=== PATIENT | female | born 1955 | race Caucasian/White ===

== ENCOUNTER 2016-08-06 10:00 | Outpatient (RCR) ==
[2014-01-12 11:36] VITALS: BMI 34.4
--- NOTE | 2016-08-04 12:42 | RS.OPPTEV2 ---
Date of Note: 08/04/16 Visit #: 1 Date of Evaluation: 08/04/16 Date of Onset/Injury/Change in Status: 07/31/15 Surgery Performed?: No Treatment Diagnosis: Unsteady gait History of Condition/Mechanism of Injury:: Patient reports she had a nervious breakdown in April and was in a coma for about 6 days. Her reports she had constant seizures while in the coma. She is now very weak in her legs and arms. She is in a support group at [facility] 3X/wk and is now mainly having difficulty with her walking. She had stage IV colon Ca in the past 3 yrs and had many complications from the chemo that followed the Ca. She also has hx of neck and back surgeries. Prior Level of Function.....Patient was independent with: ADL's, Self Care, Work /Vocation, Caregiving, Ambulation/Mobility, Community Integration/Access Functional Limitations: Sleep, Self Care, ADL's, Reaching, Pushing, Pulling, Lifting, Carrying, Sitting, Standing, Bending, Squatting, Ambulation, Community Access/Integration Current Subjective/complaints:: I want to be able to walk again w/o the walker. Treatment Side (optional): Bilateral Medical History Medical History: Hypertension, Arthritis, Cancer Surgical History: Cervical Spine, Lumbar Spine, Tonsillectomy, Hysterectomy, Other Surgical History Comments:: T12 - L1 fx with surgery due to fall. Knee surgeries bilaterally. Colon resection due to Ca. Smoking Status: Never smoker Pain Assessment - Pain Description Pain Location: Bilateral legs from her mid thighs distally to her feet. Pain Description: Aching Current Pain Intensity: 9/10 Worst Pain Intensity: 10/10 Functional Outcome Measure Tinetti: 16 - G Codes & Severity Modifier G Codes & Modifier: NA Source of G Code score: NA Gait - Gait Pattern Gait Comments: Patient has delayed step advancement greatest on the RLE, decreased kinesthetic awareness is noted and decreased balance with use of FWW. She is unable to maintain standing balance w/o support. She has been on FWW since DC from the hospital in May 2016. General Range of Motion: Right knee extension -45 degrees; left knee extension -35 degrees Muscle Strength: Bilateral hip flexors 3/5, right knee ext 3+/5, left knee ext 4 /5 and bilateral hamstring 4/5, bilateral 4/5 to 4+/5. Pateint has rapid muscle faitgue with all activity. Palpation Palpation Findings: Tenderness (Bilateral thighs with multiple tender points present left > right.) Sensation - Sensation Right Lower Extremity: Impaired Left Lower Extremity: Impaired Sensation Description: Numbness (Lower legs and feet) Balance - Sitting Balance Static Sitting Balance: Normal Dynamic Sitting Balance: Normal - Standing Balance Static Standing Balance: Fair Dynamic Standing Balance: Poor (Without assistive device) Interventions - Exercise/Activities/Manual Therapy Exercises/Activities: NA Manual Therapy: NA - Charges Total Direct Minutes: 60 Total Treatment Time: 60 Procedures billed for this date of service:: PT Duy (High) Assessment Assessment: Neuromuscular defictis with muslce weakness and rapid fatigue. She has decreased standing balance and gait deficits as well as difficulty performing sit to/from transfers. Patient Education: Education of Plan of Care Rehab Potential: Good Short Term Goals Goal #1: Patient is independent with hamstring stretches. Goal to be met by: 09/25/16 Goal #2: BLE strength 4 to 4+/5 throughout. Goal to be met by: 08/28/16 Goal #3: Dynamic standing balance 4/5 without FWW. Goal to be met by: 08/28/16 Goal #4: Patient ambulates 300' with SC and good balance. Goal to be met by: 08/28/16 Applications Intern Goals Goal #1: Bilateral hamstring length WFLs. Goal to be met by: 09/18/16 Goal #2: Pateint is able to ambulate w/o use of AD safely. Goal to be met by: 09/18/16 Goal #3: BLE strength 5/5 to improve stability and balance. Goal to be met by: 09/18/16 Goal #4: Tinetti score 24/28 Goal to be met by: 09/18/16 Plan - Treatment to be Provided Procedures: Therapeutic Exercises, Therapeutic Activity, Gait Training, Neuromuscular Rehab, Manual Therapy, Massage, Patient Education Modalities: Electrical Stimulation, Ultrasound/Phonophoresis, Cryotherapy, Hot Packs - Treatment Plan Frequency: 3 X week Duration: 6 weeks ORDER # VISITS AND/OR THROUGH DATE: 09/18/2016 - Treatment Code (1) Ataxia Comments: R27.0 (2) Muscle weakness Comments: M62.81
--- NOTE | 2016-08-06 11:28 | RS.OPPTDN ---
Subjective Date of Note: 08/06/16 Visit #: 2 Date of Evaluation: 08/04/16 Treatment Diagnosis: Unsteady gait Current Subjective/complaints:: Patient reports her main goal is to walk again without an assistive device. Pain Assessment - Pain Description Pain Location: Bilateral legs from her mid thighs distally to her feet. Pain Description: Burning, Aching Pain Description: brning/tingling in her feet Current Pain Intensity: 7/10 Interventions - Exercise/Activities/Manual Therapy Exercises/Activities: 45 mins. total of supine AROM to both LE's,with 2.5 #, including ankle pumps,QS,gluteal sets,SAQ's,heelslides,hip abduction/ adduction.Attempted bridging,but elicits low back pain.Ended session with HEP review of those done today. Total minutes of Exercise: 45 Manual Therapy: NA Total minutes of Manual Therapy: 0 HOME EXERCISE PROGRAM: LE AROM in all planes,recommended 2-3x/day as tolerated in PAIN FREE ROM. - Charges Total Direct Minutes: 45 Total Treatment Time: 45 Procedures billed for this date of service:: ex 3 Assessment: Patient very attentive ,uses good technique for each exercise done today.She cannot do bridging due to this causing her back pain.She does need cues for controlling the speed of movement,especially with eccentric motions.Her gait pattern has widened OLEGARIO,minimal knee flexion,as she reports occasionally falling at home,and feels safer at this time walking this way. Patient Education: Education of diagnosis, Body/Joint mechanics, Home Exercise Program, Home Safety, Activity Modification, Education of Plan of Care Patient demonstrates compliance with HEP?: Yes Short Term Goals Goal #1: Patient is independent with hamstring stretches. Goal to be met by: 09/25/16 Goal #2: BLE strength 4 to 4+/5 throughout. Goal to be met by: 08/28/16 Goal #3: Dynamic standing balance 4/5 without FWW. Goal to be met by: 08/28/16 Goal #4: Patient ambulates 300' with SC and good balance. Goal to be met by: 08/28/16 Skilled Nursing Goals Goal #1: Bilateral hamstring length WFLs. Goal to be met by: 09/18/16 Goal #2: Pateint is able to ambulate w/o use of AD safely. Goal to be met by: 09/18/16 Goal #3: BLE strength 11/13 to improve stability and balance. Goal to be met by: 09/18/16 Goal #4: Tinetti score Goal to be met by: 09/18/16 Plan PLAN OF CARE EXPIRES ON:: 09/18/16 ORDER # VISITS AND/OR THROUGH DATE: 09/18/2016 PLAN: Continue Plan of Care
--- NOTE | 2016-08-10 10:18 | RS.QUICKDC ---
Discharge from PT Date of Discharge: 08/10/16 Number of Visits: 2 Reason for Discharge: Patient called,reports Dr. Shi wants her to discontinue therapy.
== END 2016-08-11 ==
PROVIDERS: ATTEND Family Medicine
DX: R26.9 Unspecified abnormalities of gait and mobility (principal); M54.9 Dorsalgia, unspecified; M54.2 Cervicalgia; G89.29 Other chronic pain

== ENCOUNTER 2016-11-08 02:08 | Emergency (ER) ==
[2016-11-08 02:19] VITALS: BP 135/92; TEMP 98.2; BMI 31.5
[2016-11-08] MEDS ORDERED: DILAUDID 1 MG/ML SYRINGE IM STA (02:27)
[2016-11-08] MEDS ORDERED: ZOFRAN 4 MG/2 ML IM STA (02:30)
--- NOTE | 2016-11-08 02:30 | ED.PDOC ---
General ED Provider: Dr. BRIANNA GU Chief Complaint: Extremity Pain/Injury Stated Complaint: Tiffany complains of severe lower back pain that is chronic but got worse tonight. has chronic bilateral lower ext numbness from her prior chemotherapy. Took Morphine 5 hours ago but did get any relief. Time Seen by Physician: 02:28 Mode of Arrival: Wheelchair Information Source: Patient Exam Limitations: No limitations Primary Care Provider: CHERI ROTH Nursing and Triage Documentation Reviewed and Agree: Yes Review of Systems - Review Of Systems Constitutional: Reports: No symptoms Eyes: Reports: No symptoms Ears, Nose, Mouth, Throat: Reports: No symptoms Respiratory: Reports: No symptoms Cardiac: Reports: No symptoms GI: Reports: No symptoms : Reports: No symptoms Musculoskeletal: Reports: Back pain, Joint pain Skin: Reports: No symptoms Neurological: Reports: Anxiety, Depressed Endocrine: Reports: No symptoms Hematologic/Lymphatic: Reports: No symptoms All Other Systems: Reviewed and Negative Past Medical History - Past Medical History Endocrine: Reports: None Cardiovascular: Reports: Hypertension Respiratory: Reports: None Hematological: Reports: Anemia Gastrointestinal: Reports: None Genitourinary: Reports: None Neuro/Psych: Reports: Seizure, Anxiety, Depression Musculoskeletal: Reports: Back Pain, Joint Pain Cancer: Reports: None Last Menstrual Period: HYSTERECTOMY AT 32 YRS OLD - Surgical History General Surgical History: Reports: Tonsillectomy, Back Surgery ( x 2 ) - Family History Family History: Reports: Unknown - Social History Smoking Status: Former smoker Hx Substance Use: No Alcohol Screening: None - Immunizations Tetanus Shot up to Date: Yes Physical Exam - Physical Exam Appearance: Ill-appearing, Obese Pain Distress: Severe Neck: Supple Respiratory: Airway patent, Breath sounds clear, Breath sounds equal Cardiovascular: RRR, Pulses normal GI/: Soft, Nontender, No masses, Bowel sounds normal, No Organomegaly Musculoskeletal: Normal strength, ROM intact, No edema, No calf tenderness Skin: Warm, Dry, Normal color Neurological: Sensation intact, Reflexes intact, Alert, Oriented Psychiatric: Anxious, Depressed Re-Evaluation - Re-Evaluation Time of Re-Evaluation: 03:00 Status: Improved Pain Level: much better Critical Care Note - Critical Care Note Total Time (mins): 0 Course - Course Orders, Labs, Meds: Orders Category Date Time Status Hydromorphone HCl [Dilaudid 1 mg/ml Syringe] MEDS 11/08/16 02:27 Discontinued 1 mg IM ONCE STA Ondansetron HCl/Pf [Zofran 4 mg/2 ml] MEDS 11/08/16 02:30 Discontinued 4 mg IM ONCE STA Medications Discontinued Medications Generic Name Dose Route Start Last Admin Trade Name Meghan PRN Reason Stop Dose Admin Hydromorphone HCl 1 mg 11/08/16 02:27 11/08/16 02:42 Dilaudid 1 Mg/Ml Syringe IM 11/08/16 02:28 1 mg ONCE STA Administration Ondansetron HCl 4 mg 11/08/16 02:30 11/08/16 02:43 Zofran 4 Mg/2 Ml IM 11/08/16 02:31 4 mg ONCE STA Administration Vital Signs: Temp Pulse Resp BP Pulse Ox 11/08/16 02:11 98.2 F 87 18 135/92 H 96 Departure - Departure Time of Disposition: 03:30 Disposition: HOME SELF-CARE Discharge Problem: Chronic back pain Qualifiers: Back pain location: low back pain Back pain laterality: bilateral Sciatica presence: with sciatica Sciatica laterality: bilateral sciatica Qualifier Code: (M54.42) Lumbago with sciatica, left side Instructions: Low Back Strain (ED), Chronic Back Pain (ED) Condition: Stable Pt referred to PMD for follow-up: Yes (3 days ) Additional Instructions: Continue home Medication Follow up with PCP in 3 days Allergies/Adverse Reactions: Allergies No Known Allergies Allergy (Unverified 11/08/16 02:28) Home Medications: Ambulatory Orders Levothyroxine Sodium [Synthroid] 100 mcg PO QDAC 09/21/13 Losartan Potassium 100 mg PO DAILY 09/21/13 Metoprolol Tartrate [Lopressor] 50 mg PO BID 09/21/13 Oxycodone HCl/Acetaminophen [Oxycodone-Acetaminophen 10-650] 2 tab PO Q6HR 09/21 Quetiapine Fumarate [Seroquel] 50 mg PO BEDTIME 09/21/13 Venlafaxine HCl [Venlafaxine HCl ER] 2 tab PO BID 09/21/13 Zolpidem Tartrate [Ambien] 5 mg PO BEDTIME 09/21/13 Clonazepam [Clonazepam] 0.5 tab PO QID 02/12/14 Disposition Discussed With: Patient, Family
== END 2016-11-08 03:20 | disposition home or self-care (01) ==
LOC: ED 02:08
DX: M54.42 Lumbago with sciatica, left side (principal); G89.29 Other chronic pain
CPT/HCPCS: 96372; 99283

== ENCOUNTER 2016-12-17 09:38 | Emergency (ER) ==
[2016-12-17 09:46] VITALS: BP 133/82; TEMP 99.2; BMI 32.3
[2016-12-17] MEDS ORDERED: ZOFRAN 4 MG/2 ML IM STA (09:53)
[2016-12-17] MEDS ORDERED: MORPHINE 2 MG/ML SYRINGE IM STA (09:53)
--- NOTE | 2016-12-17 10:27 | DI ---
EXAM: Right wrist three-view HISTORY: Wrist injury COMPARISON: None FINDINGS: There is a mild to moderately displaced and impacted fracture of the distal radius with d orsal angulation of the distal fracture fragment. There is a small avulsion fracture of the ulnar s tyloid. No dislocation. Mild scattered osteoarthritic change of the wrist and hand. No focal soft tissue abnormality. IMPERSSION: Fractures of the distal radius and ulnar styloid.
--- NOTE | 2016-12-17 10:40 | ED.PDOC ---
General ED Provider: Dr. CHANDA BLEVINS-ER Chief Complaint: Wrist Pain/Injury Stated Complaint: she feel this am--her wrist hurts Time Seen by Physician: 09:40 Mode of Arrival: Wheelchair Information Source: Patient Exam Limitations: No limitations Primary Care Provider: CHERI ROTH Nursing and Triage Documentation Reviewed and Agree: Yes Musculoskeletal Complaint Exam - Hand/Wrist Complaint/Exam Location of Pain: Reports: Right, Wrist Mechanism of Injury: Reports: Trauma Onset/Duration: 6hrs Symptoms Are: Still present Onset of Pain: Reports: Immediate Initial Severity: Moderate Current Severity: Moderate Location: Reports: Discrete (right wrist) Character: Reports: Dull, Aching, Throbbing Aggravating: Reports: Movement Associated Signs and Symptoms: Reports: Swelling. Denies: Redness, Bruising, Fever, Weakness, Numbness, Tingling Related History: Reports: Similar episode Dominant Hand: Right Related Surgical History: Reports: Wrist, Other Orthopedic Surgery Hand/Wrist Findings: Present: Swelling, Abnormal contour Tenderness: Present: Radius, Ulna Compartment Syndrome Risk Factors: Present: Pain. Absent: Paralysis, Pallor, Pulselessness, Paresthesias Differential Diagnoses: Closed Fracture Review of Systems - Review Of Systems Constitutional: Reports: No symptoms Eyes: Reports: No symptoms Ears, Nose, Mouth, Throat: Reports: No symptoms Respiratory: Reports: No symptoms Cardiac: Reports: No symptoms GI: Reports: No symptoms : Reports: No symptoms Musculoskeletal: Reports: Joint pain, Joint swelling Skin: Reports: No symptoms Neurological: Reports: No symptoms Endocrine: Reports: No symptoms Hematologic/Lymphatic: Reports: No symptoms All Other Systems: Reviewed and Negative Past Medical History - Past Medical History Previously Healthy: No Endocrine: Reports: None Cardiovascular: Reports: Hypertension Respiratory: Reports: None Hematological: Reports: Anemia Gastrointestinal: Reports: None Genitourinary: Reports: None Neuro/Psych: Reports: Seizure, Anxiety, Depression Musculoskeletal: Reports: Back Pain, Joint Pain Cancer: Reports: None Last Menstrual Period: N/A - Surgical History General Surgical History: Reports: Tonsillectomy, Back Surgery ( x 2 ) - Family History Family History: Reports: Unknown - Social History Smoking Status: Former smoker Hx Substance Use: No Alcohol Screening: None Lives: With family - Immunizations Tetanus Shot up to Date: Yes Physical Exam - Physical Exam Appearance: Well-appearing Pain Distress: Moderate Eyes: BARI, EOMI, Conjunctiva clear ENT: Ears normal, Nose normal, Oropharynx normal Neck: Supple Respiratory: Airway patent, Breath sounds clear, Breath sounds equal, Respirations nonlabored Cardiovascular: RRR, Pulses normal, No rub, No murmur GI/: Soft, Nontender, No masses, Bowel sounds normal, No Organomegaly Musculoskeletal: Limited ROM Skin: Warm, Dry, Normal color Neurological: Sensation intact, Motor intact, Reflexes intact, Cranial nerves intact, Alert, Oriented Psychiatric: Affect appropriate Interpretation - Radiology Interpretation Radiology Interpretation By: Radiologist Radiology Results: Positive ("displaced distal radial fx") Procedures - Splinting Location: right wrist Hand-Made Type: Orthoglass Splint: Sugar-tong Pre-Proc Neuro Vasc Exam: Normal Post-Proc Neuro Vasc Exam: Normal Re-Evaluation - Re-Evaluation Time of Re-Evaluation: 11:12 Status: Improved Vital Signs Stable: Yes Pain Level: 2 Appearance: NAD Lungs: Clear Skin: Warm and Dry Neuro: Alert and Oriented X3 CV: RRR Physician Notification - Case Discussed Physician Notified: dr alvarez--asked to send the patient to the office now Time of Notification: 11:12 Critical Care Note - Critical Care Note Total Time (mins): 0 Course - Course Orders, Labs, Meds: Orders Category Date Time Status Morphine Sulfate [Morphine 2 mg/ml Syringe] MEDS 12/17/16 09:53 Discontinued 2 mg IM ONCE STA Ondansetron HCl/Pf [Zofran 4 mg/2 ml] MEDS 12/17/16 09:53 Discontinued 4 mg IM ONCE STA WRIST, RIGHT 3 VIEWS Stat RADS 12/17/16 09:53 Completed Medications Discontinued Medications Generic Name Dose Route Start Last Admin Trade Name Meghan PRN Reason Stop Dose Admin Morphine Sulfate 2 mg 12/17/16 09:53 12/17/16 10:05 Morphine 2 Mg/Ml Syringe IM 12/17/16 09:54 2 mg ONCE STA Administration Ondansetron HCl 4 mg 12/17/16 09:53 12/17/16 10:05 Zofran 4 Mg/2 Ml IM 12/17/16 09:54 4 mg ONCE STA Administration Vital Signs: Temp Pulse Resp BP Pulse Ox 12/17/16 09:39 99.2 F 96 H 20 133/82 92 L Departure - Departure Time of Disposition: 11:13 Disposition: HOME SELF-CARE Discharge Problem: Fracture of distal end of right radius Qualifiers: Encounter type: initial encounter Fracture type: closed Fracture morphology: unspecified fracture morphology Qualifier Code: (S52.501A) Unspecified fracture of the lower end of right radius, initial encounter for closed fracture Instructions: Wrist Fracture in Adults (ED) Condition: Stable Pt referred to PMD for follow-up: Yes Additional Instructions: go straight to dr varghese office Allergies/Adverse Reactions: Allergies No Known Allergies Allergy (Unverified 12/17/16 09:48) Home Medications: Ambulatory Orders Levothyroxine Sodium [Synthroid] 100 mcg PO QDAC 09/21/13 Losartan Potassium 100 mg PO DAILY 09/21/13 Metoprolol Tartrate [Lopressor] 50 mg PO BID 09/21/13 Oxycodone HCl/Acetaminophen [Oxycodone-Acetaminophen 10-650] 2 tab PO Q6HR 09/21 Quetiapine Fumarate [Seroquel] 50 mg PO BEDTIME 09/21/13 Venlafaxine HCl [Venlafaxine HCl ER] 2 tab PO BID 09/21/13 Zolpidem Tartrate [Ambien] 5 mg PO BEDTIME 09/21/13 Clonazepam [Clonazepam] 0.5 tab PO QID 02/12/14 Disposition Discussed With: Patient, Family
== END 2016-12-17 11:23 | disposition home or self-care (01) ==
LOC: ED 09:38
DX: S52.501A Unspecified fracture of the lower end of right radius, initial encounter for closed fracture (principal); W19.XXXA Unspecified fall, initial encounter
CPT/HCPCS: 96372; 99283

== ENCOUNTER 2017-01-19 12:34 | Outpatient (CLI) | END 2017-01-19 12:35 | disposition short-term general hospital (02) | LOC: AMBL 12:34 | PROVIDERS: ATTEND Internal Medicine | DX: T17.998A Other foreign object in respiratory tract, part unspecified causing other injury, initial encounter (principal); R07.0 Pain in throat; R41.0 Disorientation, unspecified; F41.9 Anxiety disorder, unspecified; M54.5 Low back pain; M54.6 Pain in thoracic spine; M79.605 Pain in left leg; M79.604 Pain in right leg; M79.672 Pain in left foot; M79.671 Pain in right foot; M79.602 Pain in left arm; M79.601 Pain in right arm ==

== ENCOUNTER 2017-05-12 12:49 | Outpatient (CLI) | END 2017-05-12 12:50 | disposition home or self-care (01) | LOC: LAB 12:49 | PROVIDERS: ATTEND Radiology Diagnostic Radiology | DX: Z79.891 Long term (current) use of opiate analgesic (principal) | CPT/HCPCS: 36415 ==

== ENCOUNTER 2017-07-05 21:55 | Inpatient (IN) ==
--- NOTE | 2017-07-05 22:37 | CT ---
Exam: CT of the chest without contrast History: Cough and congestion Technique: [address] of the chest without intravascular contrast FINDINGS: The lung windows show no infiltrative opacities. There is a 11 mm nodule in the posterior left upper lobe abutting the pleura. No pleural fluid. No additional nodules. The heart, great ve ssels and pericardium are unremarkable by noncontrast CT. No pathologic lymph node enlargement media stinum. No acute findings of the chest wall soft tissues or bony thorax. No acute findings of the u pper abdomen. Prior gastric surgery. Impression: 1. Left upper lobe spiculated nodule could represent nodular consolidation or neoplasm with the latt er favored. In the setting of pneumonia symptoms, post-treatment follow-up recommended. Otherwise, t issue sampling recommended.
--- NOTE | 2017-07-05 22:42 | ED.PDOC ---
General ED Provider: Dr. CHANDA BLEVINS-ER Chief Complaint: Respiratory Complaint Stated Complaint: arlene had cough, fever, and im sob --im not eating or drinking Time Seen by Physician: 21:55 Mode of Arrival: Walk-In Information Source: Patient Exam Limitations: No limitations Primary Care Provider: CHERI MORRIS Nursing and Triage Documentation Reviewed and Agree: Yes Reviewed sepsis parameters & appropriate labs ordered?: Yes System Inflammatory Response Syndrome: Not Applicable Sepsis Protocol: For patient's 13 years and over: Temp is 96.8 and below OR 101 and greater Pulse >90 BPM Resp >20/minute Acutely Altered Mental Status Are patient's symptoms suggestive of a new infection, such as: -Pneumonia -Skin, Soft Tissue -Endocarditis -UTI -Bone, Joint Infection -Implantable Device -Acute Abdominal Infection -Wound Infection -Meningitis -Blood Stream Catheter Infection -Unknown Respiratory Complaint Exam - Respiratory Complaint/Exam Onset/Duration: 4 days Symptoms Are: Still present Timing: Constant Initial Severity: Mild Current Severity: Moderate Location: Nose, Chest Character: Reports: Non-productive cough Aggravating: Reports: URI Alleviating: Reports: None Associated Signs and Symptoms: Reports: Dyspnea, Fever, Chills, URI, Nasal congestion, Decreased oral intake. Denies: Rapid breathing, Chest pain, Pleuritic chest pain, Wheezing, Hemoptysis, Dizziness, Calf pain, Calf swelling , Edema, Hoarseness, Sinus discomfort, Vomiting, Sore throat, Weight loss, Increased thirst, Increased appetite History of Healthcare-Acquired Pneumonia: No Related Surgical History: Reports: None Pulmonary Embolism Risk Factors: None Cardiac Risk Factors: Reports: None Pseudomonas Risk Factors: Reports: None Tuberculosis Risk Factors: Reports: None Status Asthmaticus Risk Factors: Reports: None Home Oxygen Use: No Home Peak Flow: Recent personal best Recent Stress Test: No Recent Echo/LV Function: No Current Antibiotic Use: Yes Current Asthma Medication Use: No Respiratory Distress: None Inadequate Respiratory Effort: No Dysphagia Present: No Stridor Present: No JVD Present: No Accessory Muscle Use: No Retractions: Not Present Diminished Breath Sounds: No Sinus Tenderness: None Grunting Respirations: No Kussmaul Respirations: No Differential Diagnoses: Pneumonia, Influenza Review of Systems - Review Of Systems Constitutional: Reports: Chills, Fever, Weakness, Loss of appetite Eyes: Reports: No symptoms Ears, Nose, Mouth, Throat: Reports: No symptoms Respiratory: Reports: Cough, Short of air Cardiac: Reports: No symptoms GI: Reports: No symptoms : Reports: No symptoms Musculoskeletal: Reports: No symptoms Skin: Reports: No symptoms Neurological: Reports: No symptoms Endocrine: Reports: No symptoms Hematologic/Lymphatic: Reports: No symptoms All Other Systems: Reviewed and Negative Past Medical History - Past Medical History Previously Healthy: No Endocrine: Reports: None Cardiovascular: Reports: Hypertension Respiratory: Reports: None Hematological: Reports: Anemia Gastrointestinal: Reports: None Genitourinary: Reports: None Neuro/Psych: Reports: Seizure, Anxiety, Depression Musculoskeletal: Reports: Back Pain, Joint Pain Cancer: Reports: None Last Menstrual Period: 1989 - Surgical History General Surgical History: Reports: Tonsillectomy, Back Surgery ( x 2 ) - Family History Family History: Reports: Unknown - Social History Smoking Status: Former smoker Hx Substance Use: No Alcohol Screening: None Lives: With family - Immunizations Tetanus Shot up to Date: Yes Physical Exam - Physical Exam Appearance: Well-appearing, No pain distress, Well-nourished Eyes: BARI, EOMI, Conjunctiva clear ENT: Rhinorrhea Neck: Supple Respiratory: Crackles, Rhonchi Cardiovascular: RRR, Pulses normal, No rub, No murmur GI/: Soft, Nontender, No masses, Bowel sounds normal, No Organomegaly Musculoskeletal: Normal strength, ROM intact, No edema, No calf tenderness Skin: Warm, Dry, Normal color Neurological: Sensation intact, Motor intact, Reflexes intact, Cranial nerves intact, Alert, Oriented Psychiatric: Affect appropriate, Mood appropriate, Anxious Interpretation - Radiology Interpretation Radiology Interpretation By: Radiologist Radiology Results: Positive Exam Interpreted: CT Scan (Pulmonary nodule) Physician Notification - Case Discussed Physician Notified: dr morris Time of Notification: 22:51 Critical Care Note - Critical Care Note Total Time (mins): 0 Course - Course Hematology/Chemistry: 07/05/17 22:25 07/05/17 22:25 Orders, Labs, Meds: Lab Review 07/05/17 07/05/17 07/05/17 22:06 22:18 22:25 WBC 3.82 L RBC 4.45 Hgb 12.8 Hct 37.6 MCV 84.5 MCH 28.8 MCHC 34.0 RDW Coeff of Nicky 14.7 Plt Count 198 Immature Gran % (Auto) 0.5 Neut % (Auto) 73.7 Lymph % (Auto) 15.4 Harrison % (Auto) 8.6 Eos % (Auto) 1.3 Baso % (Auto) 0.5 Immature Gran # (Auto) 0.0 Neut # 2.8 Lymph # 0.6 Harrison # 0.3 L Eos # 0.1 Baso # 0.0 Puncture Site Lb O2 Saturation 95.0 ABG pH 7.446 ABG pCO2 33.6 L ABG pO2 70.0 L ABG HCO3 23.2 ABG Total CO2 24 ABG Base Excess -1 Kyaw Test + FiO2 % 21.0 Sodium Potassium Chloride Carbon Dioxide Anion Gap BUN Creatinine Estimated GFR (MDRD) BUN/Creatinine Ratio Glucose Calcium Total Bilirubin AST ALT Alkaline Phosphatase Total Protein Albumin Globulin Albumin/Globulin Ratio Influenza A (Rapid) Negative by naat Influenza B (Rapid) Positive by naat H 07/05/17 22:25 WBC RBC Hgb Hct MCV MCH MCHC RDW Coeff of Nicky Plt Count Immature Gran % (Auto) Neut % (Auto) Lymph % (Auto) Harrison % (Auto) Eos % (Auto) Baso % (Auto) Immature Gran # (Auto) Neut # Lymph # Harrison # Eos # Baso # Puncture Site O2 Saturation ABG pH ABG pCO2 ABG pO2 ABG HCO3 ABG Total CO2 ABG Base Excess Kyaw Test FiO2 % Sodium 128 L Potassium 3.7 Chloride 92 L Carbon Dioxide 25 Anion Gap 14.7 BUN 9 Creatinine 0.75 Estimated GFR (MDRD) 78.00 BUN/Creatinine Ratio 12.00 Glucose 90 Calcium 8.4 Total Bilirubin 0.4 AST 21 ALT 17 Alkaline Phosphatase 166 H Total Protein 6.9 Albumin 3.1 L Globulin 3.8 Albumin/Globulin Ratio 0.82 Influenza A (Rapid) Influenza B (Rapid) Orders Category Date Time Status ABG DRAW REQUEST Stat CARDIO 07/05/17 22:18 Completed ABG Stat LAB 07/05/17 22:18 Completed BLOOD CULTURE (ED ONLY) Stat LAB 07/05/17 22:25 Received CBC W/ AUTO DIFF Stat LAB 07/05/17 22:25 Completed COMPREHENSIVE METABOLIC PANEL Stat LAB 07/05/17 22:25 Completed MOLECULAR GROUP A STREP Stat LAB 07/05/17 22:06 Results RAPID FLU A/B Stat LAB 07/05/17 22:06 Completed STREP SCREEN Stat LAB 07/05/17 22:06 Results Hydrocodone Bit/Acetaminophen [[place] 7.5-325] MEDS 07/05/17 22:47 Discontinued 1 tab PO ONCE STA CT CHEST W/O CONTRAST Stat RADS 07/05/17 21:59 Completed Medications Discontinued Medications Generic Name Dose Route Start Last Admin Trade Name Meghan PRN Reason Stop Dose Admin Acetaminophen/Hydrocodone Bitart 1 tab 07/05/17 22:47 [place] 7.5-325 PO 07/05/17 22:48 ONCE STA Vital Signs: Temp Pulse Resp BP Pulse Ox 07/05/17 21:57 100.5 F H 96 H 20 143/95 H 97 Departure - Departure Time of Disposition: 22:52 Disposition: ADMITTED INPATIENT Discharge Problem: Dehydration, Influenza B Instructions: Influenza (ED) Condition: Fair Pt referred to PMD for follow-up: Yes Allergies/Adverse Reactions: Allergies No Known Allergies Allergy (Verified 07/05/17 22:00) Home Medications: Ambulatory Orders Levothyroxine Sodium [Synthroid] 100 mcg PO QDAC 09/21/13 Losartan Potassium 100 mg PO DAILY 09/21/13 Metoprolol Tartrate [Lopressor] 50 mg PO BID 09/21/13 Oxycodone HCl/Acetaminophen [Oxycodone-Acetaminophen 10-650] 2 tab PO Q6HR 09/21 Quetiapine Fumarate [Seroquel] 50 mg PO BEDTIME 09/21/13 Venlafaxine HCl [Venlafaxine HCl ER] 2 tab PO BID 09/21/13 Clonazepam [Clonazepam] 0.5 tab PO QID 02/12/14 Quetiapine Fumarate [Seroquel] 25 mg PO DAILY 07/05/17 Disposition Discussed With: Patient
[2017-07-05] MEDS ORDERED: NORCO 7.5-325 PO STA (22:47)
[2017-07-05] MEDS ORDERED: SODIUM CHLORIDE 1,000 ML IV STA (22:57)
[2017-07-05] MEDS ORDERED: ROCEPHIN 1 GM in SODIUM CHLORIDE 50 ML IV SCH (23:00)
[2017-07-05] MEDS ORDERED: ROCEPHIN ONE (23:42)
[2017-07-05] MEDS: TAMIFLU PO SCH (23:49)
[2017-07-06] MEDS ORDERED: KLONOPIN ONE (00:01)
[2017-07-06] MEDS: LOPRESSOR PO SCH ×3 (00:30→21:59)
[2017-07-06] MEDS: LOVENOX SUBCUT SCH ×2 (00:30→17:38)
[2017-07-06] MEDS: TESSALON PERLES PO PRN ×2 (00:32→20:46)
[2017-07-06] MEDS: DUONEB NEB SCH ×5 (01:04→21:43)
[2017-07-06] MEDS: SODIUM CHLORIDE 1,000 ML IV SCH ×2 (02:00→17:38)
[2017-07-06] MEDS ORDERED: PERCOCET 10-325 ONE ×2 (02:31→06:07)
[2017-07-06] MEDS: SEROQUEL PO SCH ×3 (02:48→20:45)
[2017-07-06] MEDS: [UNRECOGNIZED DRUG - OTHER] PO SCH ×2 (02:49→17:38)
[2017-07-06] MEDS: OXYCODONE HCL PO SCH ×2 (02:49→17:38)
[2017-07-06] MEDS: ACETAMINOPHEN T PO SCH ×2 (02:49→17:38)
[2017-07-06] MEDS: SYNTHROID PO SCH (06:16)
[2017-07-06] MEDS ORDERED: VENLAFAXINE HCL PO SCH (09:00)
[2017-07-06] MEDS ORDERED: SEROQUEL PO SCH ×2 (09:00→21:00)
[2017-07-06] MEDS ORDERED: CLONAZEPAM PO SCH (09:00)
[2017-07-06] MEDS ORDERED: NORCO 5-325 PO STA (09:24)
[2017-07-06] MEDS ORDERED: NORCO 5-325 ONE ×2 (09:26→09:45)
[2017-07-06] MEDS: COZAAR PO SCH (09:43)
[2017-07-06] MEDS: EFFEXOR XR PO SCH (09:44)
[2017-07-06] MEDS: TAMIFLU PO SCH ×2 (09:46→20:45)
[2017-07-06] MEDS: KLONOPIN PO SCH ×5 (10:42→20:44)
[2017-07-06] MEDS: PERCOCET 10-325 PO PRN ×3 (13:01→21:59)
[2017-07-06 15:25] VITALS: BMI 31.0
[2017-07-06] MEDS ORDERED: LOVENOX SUBCUT SCH (21:00)
[2017-07-06] MEDS ORDERED: ROCEPHIN 1 GM in SODIUM CHLORIDE 50 ML IV SCH (21:00)
[2017-07-07] MEDS: PERCOCET 10-325 PO PRN ×4 (01:38→13:43)
[2017-07-07] MEDS: DUONEB NEB SCH ×2 (05:12→11:06)
[2017-07-07] MEDS: SYNTHROID PO SCH (05:37)
[2017-07-07] MEDS: SODIUM CHLORIDE 1,000 ML IV SCH (07:07)
[2017-07-07] MEDS: EFFEXOR XR PO SCH (08:42)
[2017-07-07] MEDS: TAMIFLU PO SCH (08:43)
[2017-07-07] MEDS: LOPRESSOR PO SCH (08:43)
[2017-07-07] MEDS: COZAAR PO SCH (08:43)
[2017-07-07] MEDS: SEROQUEL PO SCH (08:43)
[2017-07-07] MEDS: KLONOPIN PO SCH ×2 (08:43→13:42)
[2017-07-07 13:22] VITALS: BP 134/72; TEMP 97.5
[2017-07-07] MEDS ORDERED: DUONEB NEB SCH (20:00)
== END 2017-07-07 17:10 | disposition home or self-care (01) | DRG 153 ==
LOC: ED 21:55 → MEDSURG A 07-06 13:51
PROVIDERS: ADMIT Family Medicine; ATTEND Family Medicine
DX: J11.1 Influenza due to unidentified influenza virus with other respiratory manifestations (principal); E87.1 Hypo-osmolality and hyponatremia; J20.9 Acute bronchitis, unspecified; R91.1 Solitary pulmonary nodule; E86.0 Dehydration; R06.02 Shortness of breath; G89.29 Other chronic pain; M54.2 Cervicalgia; D70.9 Neutropenia, unspecified; F50.9 Eating disorder, unspecified; R26.89 Other abnormalities of gait and mobility; Z86.718 Personal history of other venous thrombosis and embolism; Z99.3 Dependence on wheelchair; Z79.891 Long term (current) use of opiate analgesic; Z79.899 Other long term (current) drug therapy
CPT/HCPCS: 36415; 80053; 82803; 85025; 87040; 87502; 87651; 87880; 94640; 96365; 99284

== ENCOUNTER 2017-11-30 08:57 | Outpatient (CLI) ==
--- NOTE | 2017-11-30 10:49 | CT ---
EXAM: CT chest with contrast. HISTORY: Abnormal chest imaging. COMPARISON: Chest CT 07/05/2017. Radiograph 09/21/2013. TECHNIQUE: Multiple axial images of the chest were obtained following intravenous administration of 75 mL of Omnipaque 350, low osmolar. Images were reformatted in the sagittal and coronal planes. FINDINGS: Nonenlarged mediastinal and hilar lymph nodes are present measuring up to 0.8 cm in the le ft hilum and 0.9 cm in the right hilum. Heart size is normal. There is no pericardial effusion. Ground-glass opacities and ground-glass nodules seen throughout both lungs which are new. There is a spiculated nodule in the left upper lobe measuring approximately 1.3 cm on axial image 35 which abut s the left lung fissure. This has mildly increased in size since prior study when it measured 1.1 cm . No pleural effusion or pneumothorax identified. Limited images of the upper abdomen demonstrate postsurgical changes of the stomach and nonspecific f luid distension of a left upper quadrant small bowel. There has been previous ACDF. There is redemo nstration of posterior and lateral fusion from T11-L1 with corpectomy changes at T12. Mild superior endplate compression deformities of T4 and T5 noted. Old sternal body fracture is seen. IMPRESSION: 1. Slight increase in size of spiculated left upper lobe nodule, highly suspicious for neoplasm. Pe rcutaneous sampling recommended. 2. Diffuse bilateral ground-glass opacities and ground-glass nodules most likely due to infectious o r inflammatory process.
== END 2017-11-30 08:58 | disposition home or self-care (01) ==
LOC: RAD 08:57
PROVIDERS: ATTEND Family Medicine
DX: R93.8 Abnormal findings on diagnostic imaging of other specified body structures (principal)
CPT/HCPCS: 36415; 82565

== ENCOUNTER 2017-12-04 21:57 | Inpatient (IN) ==
[~2017-12-04 21:57] MED LIST: VERSED IVP STA
[2017-12-04] MEDS ORDERED: ANECTINE IVP STA ×3 (22:27→22:30)
[2017-12-04] MEDS ORDERED: NORCURON IVP STA (22:27)
--- NOTE | 2017-12-04 22:41 | ED.PDOC ---
General ED Provider: Dr. BRIANNA GU Chief Complaint: Non-specific Complaint Stated Complaint: Patient is a 62 year old female who is Brought by EMS. Pt. unresponsive upon EMS arrival at home. She had fixed gaze and the initial resp rate was 6/min. ETCO2 was 70. she had no improvement with nasal airway, non- rebreather, or assisted BVM. Decision to intubate pt. per EMS with #7.5 tube, # 26 at lip. Saturation was increased to 99%. Per Patient has been under alot of stress and has been depressed to to her son being on drugs and in and out of long term. patient has been sleepy more than usual. Apparently had access to her loperomide which she took about 100 tab of 2 mg. Time Seen by Physician: 22:00 Mode of Arrival: Ambulance Information Source: Patient, EMT Exam Limitations: Other (intubated ) Primary Care Provider: CHERI ESCOBAR Nursing and Triage Documentation Reviewed and Agree: Yes Reviewed sepsis parameters & appropriate labs ordered?: Yes System Inflammatory Response Syndrome: Acutely Altered Mental Status Sepsis Protocol: For patient's 13 years and over: Temp is 96.8 and below OR 101 and greater Pulse >90 BPM Resp >20/minute Acutely Altered Mental Status Are patient's symptoms suggestive of a new infection, such as: -Pneumonia -Skin, Soft Tissue -Endocarditis -UTI -Bone, Joint Infection -Implantable Device -Acute Abdominal Infection -Wound Infection -Meningitis -Blood Stream Catheter Infection -Unknown System Inflammatory Response Syndrome: Not Applicable Neurological Complaint Exam - Altered Mental Status Complaint/Exam Current Mental Status: Unresponsiveness Last Known Well: This morning Onset: Gradual Duration: 1 hour Symptoms Are: Still present Timing: Constant Initial Severity: Severe Current Severity: Severe Eye Deviation Present: No Aggravating: Reports: Drug abuse (loperamide overdose. ) Associated Signs and Symptoms: Reports: Recently depressed (due to family issues ) Related History: Reports: Seizure Cardiac Risk Factors: Reports: Hypertension CVA Risk Factors: Reports: Hypertension Carotid Bruit Present: No Glascow Coma Scale (see protocol): 4 Nystagmus Present: No Gag Reflex Present: Yes (prior to sedation with versed) Focal Weakness: Present: None Focal Sensory Loss: Present: None Gait: Unable Signs of Injury: Present: Normal findings Thrombolytics Considered: No Differential Diagnoses: Intoxication, Overdose (with Loperamide ) Review of Systems - Review Of Systems Constitutional: Reports: Other (unable due to unresponsiveness ) All Other Systems: Other (limited due to unresponsivness) Past Medical History - Past Medical History Previously Healthy: No Endocrine: Reports: None Cardiovascular: Reports: Hypertension Respiratory: Reports: None Hematological: Reports: Anemia Gastrointestinal: Reports: None Genitourinary: Reports: None Neuro/Psych: Reports: Seizure, Anxiety, Depression Musculoskeletal: Reports: Back Pain, Joint Pain Cancer: Reports: Colon (Diagnosed today ) Last Menstrual Period: hysterectomy 1989 - Surgical History General Surgical History: Reports: Tonsillectomy, Back Surgery ( x 2 ) - Family History Family History: Reports: Unknown - Social History Smoking Status: Former smoker Hx Substance Use: No Alcohol Screening: None - Immunizations Tetanus Shot up to Date: No (unknown) Physical Exam - Physical Exam Appearance: Ill-appearing, Obese Ill-appearing: Severe Eyes: Right pupil size (3mm reactive ), Left pupil size (3mm reactive ) Neck: Supple Respiratory: Rhonchi (mild scattared, ) Cardiovascular: RRR, Pulses normal GI/: Soft Skin: Pale Neurological: Unresponsive Interpretation - Radiology Interpretation Radiology Interpretation By: ED Physician Exam Interpreted: Portable CXR, Other (Et tube at the Nancy - needs to be pulled 2 cm. diffuse infiltrae ? Atelectasis VS Pneumonia.) Radiology Interpretation By: Radiologist Radiology Results: Negative Exam Interpreted: CT Scan (head ) Physician Notification - Case Discussed Physician Notified: Dr. Escobar Time of Notification: 23:10 (Admit to [facility], keep on the Ventilator.) Critical Care Note - Critical Care Note Total Time (mins): 65 Comments: Poison controlled notified Recommended Close monitoring for respiratory depression, Qt Prolongation, Arrhythmias Recommended supportive care. No Charcoal recommended. Course - Course Hematology/Chemistry: 12/05/17 06:45 12/05/17 06:45 Orders, Labs, Meds: Lab Review 12/04/17 12/04/17 12/04/17 20:30 20:30 21:50 WBC RBC Hgb Hct MCV MCH MCHC RDW Coeff of Nicky Plt Count Immature Gran % (Auto) Neut % (Auto) Lymph % (Auto) Yell % (Auto) Eos % (Auto) Baso % (Auto) Immature Gran # (Auto) Neut # (Auto) Lymph # (Auto) Yell # (Auto) Eos # (Auto) Baso # (Auto) Plt Morphology Comment Anisocytosis RBC Morph Comment Puncture Site Rbrach O2 Saturation 100.0 ABG pH 7.416 ABG pCO2 45.3 H ABG pO2 392.0 H ABG HCO3 29.2 H ABG Total CO2 31 H ABG Base Excess 5 H Kyaw Test Pending O2 Delivery Device Ambu Oxygen Liter Flow 15.00 FiO2 % 100.0 Sodium Potassium Chloride Carbon Dioxide Anion Gap BUN Creatinine Estimated GFR (MDRD) BUN/Creatinine Ratio Glucose Lactic Acid Calcium Total Bilirubin AST ALT Alkaline Phosphatase Total Protein Albumin Globulin Albumin/Globulin Ratio Procalcitonin Urine Color Urine Clarity Urine pH Ur Specific [place] Urine Protein Urine Glucose (UA) Urine Ketones Urine Blood Urine Nitrite Urine Bilirubin Urine Urobilinogen Ur Leukocyte Esterase Urine Microscopic RBC Urine Microscopic WBC Ur Squamous Epith Cells Urine Bacteria Hyaline Casts Salicylate Level mg/dL < 5.0 Urine Opiates Screen Ur Oxycodone Screen Urine Methadone Screen Ur Propoxyphene Screen Acetaminophen < 3 L Ur Barbiturates Screen U Tricyclic Antidepress Ur Phencyclidine Scrn Ur Amphetamine Screen U Methamphetamines Scrn U Benzodiazepines Scrn Urine Cocaine Screen U Cannabinoids Screen Plasma/Serum Alcohol < 10.0 12/04/17 12/04/17 12/04/17 22:30 22:30 22:30 WBC 12.79 H RBC 4.16 L Hgb 12.3 Hct 37.9 MCV 91.1 MCH 29.6 MCHC 32.5 RDW Coeff of Nicky 14.9 H Plt Count 349 Immature Gran % (Auto) 0.6 Neut % (Auto) 89.2 Lymph % (Auto) 5.6 L Yell % (Auto) 3.7 Eos % (Auto) 0.4 Baso % (Auto) 0.5 Immature Gran # (Auto) 0.1 Neut # (Auto) 11.4 H Lymph # (Auto) 0.7 Yell # (Auto) 0.5 Eos # (Auto) 0.1 Baso # (Auto) 0.1 Plt Morphology Comment Occ giant plt Anisocytosis Not present RBC Morph Comment Normal Puncture Site O2 Saturation ABG pH ABG pCO2 ABG pO2 ABG HCO3 ABG Total CO2 ABG Base Excess Kyaw Test O2 Delivery Device Oxygen Liter Flow FiO2 % Sodium 131 L Potassium 5.3 H Chloride 95 L Carbon Dioxide 25 Anion Gap 16.3 BUN 11 Creatinine 0.92 Estimated GFR (MDRD) 62.00 BUN/Creatinine Ratio 11.95 Glucose 114 Lactic Acid Calcium 8.7 Total Bilirubin 0.3 AST 10 L ALT 9 L Alkaline Phosphatase 157 H Total Protein 6.5 Albumin 2.4 L Globulin 4.1 Albumin/Globulin Ratio 0.59 Procalcitonin < 0.05 Urine Color Urine Clarity Urine pH Ur Specific [place] Urine Protein Urine Glucose (UA) Urine Ketones Urine Blood Urine Nitrite Urine Bilirubin Urine Urobilinogen Ur Leukocyte Esterase Urine Microscopic RBC Urine Microscopic WBC Ur Squamous Epith Cells Urine Bacteria Hyaline Casts Salicylate Level mg/dL Urine Opiates Screen Ur Oxycodone Screen Urine Methadone Screen Ur Propoxyphene Screen Acetaminophen Ur Barbiturates Screen U Tricyclic Antidepress Ur Phencyclidine Scrn Ur Amphetamine Screen U Methamphetamines Scrn U Benzodiazepines Scrn Urine Cocaine Screen U Cannabinoids Screen Plasma/Serum Alcohol 12/04/17 12/04/17 12/05/17 22:30 23:30 00:00 WBC RBC Hgb Hct MCV MCH MCHC RDW Coeff of Nicky Plt Count Immature Gran % (Auto) Neut % (Auto) Lymph % (Auto) Yell % (Auto) Eos % (Auto) Baso % (Auto) Immature Gran # (Auto) Neut # (Auto) Lymph # (Auto) Yell # (Auto) Eos # (Auto) Baso # (Auto) Plt Morphology Comment Anisocytosis RBC Morph Comment Puncture Site Rbrach O2 Saturation 100.0 ABG pH 7.472 H ABG pCO2 35.9 ABG pO2 184.0 H ABG HCO3 26.2 H ABG Total CO2 27 ABG Base Excess 3 H Kyaw Test Pending O2 Delivery Device Ventilator Oxygen Liter Flow FiO2 % 50.0 Sodium Potassium Chloride Carbon Dioxide Anion Gap BUN Creatinine Estimated GFR (MDRD) BUN/Creatinine Ratio Glucose Lactic Acid 13.8 Calcium Total Bilirubin AST ALT Alkaline Phosphatase Total Protein Albumin Globulin Albumin/Globulin Ratio Procalcitonin Urine Color Yellow Urine Clarity Slightly Urine pH 5.5 Ur Specific [place] >=1.030 Urine Protein Negative Urine Glucose (UA) Negative Urine Ketones Trace Urine Blood Negative Urine Nitrite Positive Urine Bilirubin 1+ Urine Urobilinogen 1.0 Ur Leukocyte Esterase Negative Urine Microscopic RBC 0-2 Urine Microscopic WBC 5-10 Ur Squamous Epith Cells 0-2 Urine Bacteria 3+ Hyaline Casts 2-5 Salicylate Level mg/dL Urine Opiates Screen Ur Oxycodone Screen Urine Methadone Screen Ur Propoxyphene Screen Acetaminophen Ur Barbiturates Screen U Tricyclic Antidepress Ur Phencyclidine Scrn Ur Amphetamine Screen U Methamphetamines Scrn U Benzodiazepines Scrn Urine Cocaine Screen U Cannabinoids Screen Plasma/Serum Alcohol 12/05/17 00:00 WBC RBC Hgb Hct MCV MCH MCHC RDW Coeff of Nicky Plt Count Immature Gran % (Auto) Neut % (Auto) Lymph % (Auto) Yell % (Auto) Eos % (Auto) Baso % (Auto) Immature Gran # (Auto) Neut # (Auto) Lymph # (Auto) Yell # (Auto) Eos # (Auto) Baso # (Auto) Plt Morphology Comment Anisocytosis RBC Morph Comment Puncture Site O2 Saturation ABG pH ABG pCO2 ABG pO2 ABG HCO3 ABG Total CO2 ABG Base Excess Kyaw Test O2 Delivery Device Oxygen Liter Flow FiO2 % Sodium Potassium Chloride Carbon Dioxide Anion Gap BUN Creatinine Estimated GFR (MDRD) BUN/Creatinine Ratio Glucose Lactic Acid Calcium Total Bilirubin AST ALT Alkaline Phosphatase Total Protein Albumin Globulin Albumin/Globulin Ratio Procalcitonin Urine Color Urine Clarity Urine pH Ur Specific [place] Urine Protein Urine Glucose (UA) Urine Ketones Urine Blood Urine Nitrite Urine Bilirubin Urine Urobilinogen Ur Leukocyte Esterase Urine Microscopic RBC Urine Microscopic WBC Ur Squamous Epith Cells Urine Bacteria Hyaline Casts Salicylate Level mg/dL Urine Opiates Screen Negative Ur Oxycodone Screen Negative Urine Methadone Screen Negative Ur Propoxyphene Screen Negative Acetaminophen Ur Barbiturates Screen Negative U Tricyclic Antidepress Positive Ur Phencyclidine Scrn Negative Ur Amphetamine Screen Negative U Methamphetamines Scrn Negative U Benzodiazepines Scrn Negative Urine Cocaine Screen Negative U Cannabinoids Screen Negative Plasma/Serum Alcohol Orders Category Date Time Status ABG DRAW REQUEST Routine CARDIO 12/04/17 22:31 Completed ABG DRAW REQUEST Routine CARDIO 12/04/17 23:46 Completed ABG DRAW REQUEST Stat CARDIO 12/05/17 00:28 Completed NEBULIZER TREATMENT Routine CARDIO 12/05/17 00:28 Active OXYGEN Routine CARDIO 12/05/17 00:12 Active VENTILATOR Routine CARDIO 12/04/17 22:29 Active ACTIVITY .Up ad Rhina CARE 12/05/17 00:13 Active CATHETER INSERTION AND CARE Q8HR CARE 12/05/17 00:12 Active INTAKE & OUTPUT Q8HR CARE 12/05/17 00:13 Active IV ACCESS ONCE CARE 12/04/17 22:26 Active REMINDER: Ask MD to d/c lugo DAILY CARE 12/05/17 00:14 Active VITAL SIGNS Q4HR CARE 12/05/17 00:13 Completed NOTHING BY MOUTH DIETARY 12/05/17 Breakfast Ordered ED APPLY O2 .ONCE EMERGENCY 12/04/17 22:26 Active ED VALVE REPAIRER APPLIED .ONCE EMERGENCY 12/04/17 22:26 Active ED CATHETER INSERTION AND CARE .ONCE EMERGENCY 12/04/17 22:55 Active ED VITAL SIGNS Q1HR EMERGENCY 12/04/17 22:26 Completed ABG Stat LAB 12/04/17 21:50 Results ABG Stat LAB 12/04/17 23:30 Results ABG Stat LAB 12/05/17 04:45 Completed ACETAMINOPHEN Stat LAB 12/04/17 20:30 Completed BLOOD CULTURE (ED ONLY) Stat LAB 12/04/17 20:30 Received CBC W/ AUTO DIFF DAILY@0600 LAB 12/05/17 06:45 Completed CBC W/ AUTO DIFF DAILY@0600 LAB 12/06/17 06:00 Ordered CBC W/ AUTO DIFF Stat LAB 12/04/17 22:30 Completed COMPREHENSIVE METABOLIC PANEL DAILY@0600 LAB 12/05/17 06:45 Completed COMPREHENSIVE METABOLIC PANEL DAILY@0600 LAB 12/06/17 06:00 Ordered COMPREHENSIVE METABOLIC PANEL Stat LAB 12/04/17 22:30 Completed ETOH LEVEL [BLOOD ALCOHOL] Stat LAB 12/04/17 20:30 Completed LACTIC ACID Stat LAB 12/04/17 22:30 Completed PROCALCITONIN Stat LAB 12/04/17 22:30 Completed RBC MORPHOLOGY Stat LAB 12/04/17 22:30 Completed SALICYLATE Stat LAB 12/04/17 20:30 Completed URINALYSIS C & S IF INDICATED Stat LAB 12/05/17 00:00 Completed URINE CULTURE Stat LAB 12/05/17 00:00 Received URINE DRUG SCREEN (RAPID FOR ED) [DRUG SCREEN, URINE, LAB 12/05/17 00:00 Completed RAPID] Stat Enoxaparin Sodium [Lovenox] MEDS 12/05/17 00:30 Active 40 mg SUBCUT DAILY Fentanyl Vial [Sublimaze] MEDS 12/04/17 22:55 Discontinued 50 mcg IVP ONCE STA Ipratropium/Albuterol Neb [Duoneb] MEDS 12/05/17 06:00 Active 1 vial NEB RTQID Lidocaine HCl [Uro-Jet] MEDS 12/04/17 22:55 Discontinued 10 ml [id number] ONCE STA Midazolam HCl Inj [Versed] MED 12/04/17 21:50 Discontinued 5 mg IVP ONCE STA Premix Vial [Premix Infusion 100 ml Vial] 1 vial [facility] 12/04/17 23:30 Active Propofol Inj [Diprivan 100 ml Vial] 1,000 mg IV 30 mcg/kg/min Propofol Inj [Diprivan 100 ml Vial] 100 ml MEDS 12/04/17 23:15 Discontinued IV .STK-MED Sodium Chloride 0.9% [Sodium Chloride] 1,000 ml [facility] 12/05/17 00:30 Active IV 125 mls/hr Sodium Chloride 0.9% [Sodium Chloride] 1,000 ml MED 12/04/17 22:58 Discontinued IV BOLUS Succinylcholine Chloride [Anectine] [facility] 12/04/17 22:27 Discontinued 50 mg IVP ONCE STA Succinylcholine Chloride [Anectine] [facility] 12/04/17 22:30 Discontinued 50 mg IVP ONCE STA Succinylcholine Chloride [Anectine] [facility] 12/04/17 22:30 Discontinued 50 mg IVP ONCE STA Vecuronium [place] [Norcuron] [facility] 12/04/17 22:45 Discontinued 10 mg .ROUTE .STK-MED ONE Vecuronium [place] [Norcuron] [facility] 12/04/17 22:27 Discontinued 8 mg IVP ONCE STA RESUSCITATION STATUS Routine OTHERS 12/05/17 00:12 Ordered CHEST, 1V AP ONLY Stat RADS 12/04/17 22:[address] HEAD W/O CONTRAST Stat RADS 12/04/17 22:28 Completed Medications Generic Name Dose Route Start Last Admin Trade Name Freq PRN Reason Stop Dose Admin Albuterol/Ipratropium 1 vial 12/05/17 06:00 12/05/17 05:41 Duoneb NEB 1 vial RTQID FELIZ Administration Enoxaparin Sodium 40 mg 12/05/17 00:30 12/05/17 02:23 Lovenox SUBCUT 40 mg DAILY FELIZ Administration Propofol 1,000 mg/ Sterile 100 mls @ 19.06 mls/hr 12/04/17 23:30 12/05/17 02: 37 Water IV 39.34 mcg/kg/min .Q5H15M FELIZ 25 mls/hr Administration Protocol 30 MCG/KG/MIN Sodium Chloride 1,000 mls @ 125 mls/hr 12/05/17 00:30 12/05/17 02:25 Sodium Chloride IV 125 mls/hr .Q8H FELIZ Administration Sodium Chloride 1 syr 12/05/17 00:47 Saline Flush IVF PRN PRN To flush IV Discontinued Medications Generic Name Dose Route Start Last Admin Trade Name Freq PRN Reason Stop Dose Admin Fentanyl Citrate 50 mcg 12/04/17 22:55 12/04/17 23:07 Sublimaze IVP 12/04/17 22:56 50 mcg ONCE STA Administration Sodium Chloride 1,000 mls @ 1,000 mls/hr 12/04/17 22:58 12/04/17 22:00 Sodium Chloride IV 12/04/17 23:57 1,000 mls/hr BOLUS STA Administration Lidocaine HCl 10 ml 12/04/17 22:55 12/05/17 02:39 Uro-Jet [id number] 12/04/17 22:56 Not Given ONCE STA Midazolam HCl 5 mg 12/04/17 21:50 12/04/17 22:00 Versed IVP 12/04/17 21:51 5 mg ONCE STA Administration Succinylcholine Chloride 50 mg 12/04/17 22:27 12/04/17 22:10 Anectine IVP 12/04/17 22:28 50 mg ONCE STA Administration Succinylcholine Chloride 50 mg 12/04/17 22:30 12/04/17 22:00 Anectine IVP 12/04/17 22:31 50 mg ONCE STA Administration Succinylcholine Chloride 50 mg 12/04/17 22:30 12/04/17 22:21 Anectine IVP 12/04/17 22:31 50 mg ONCE STA Administration Vecuronium [place] 8 mg 12/04/17 22:27 12/04/17 22:23 Norcuron IVP 12/04/17 22:28 8 mg ONCE STA Administration Vital Signs: Temp Pulse Resp BP Pulse Ox 12/05/17 00:00 95 H 14 153/92 H 100 12/04/17 23:44 14 12/04/17 23:20 95 H 12 153/95 H 12/04/17 22:55 12 12/04/17 21:58 97.1 F L 95 H 10 L 107/71 100 Departure - Departure Time of Disposition: 02:00 Disposition: ADMITTED INPATIENT Discharge Problem: Atelectasis Drug overdose, intentional Qualifiers: Encounter type: initial encounter Qualified Code(s): T50.902A - Poisoning by unspecified drugs, medicaments and biological substances, intentional self-harm , initial encounter Respiratory failure Qualifiers: Chronicity: acute Respiratory failure complication: unspecified whether with hypoxia or hypercapnia Qualified Code(s): J96.00 - Acute respiratory failure, unspecified whether with hypoxia or hypercapnia Condition: Stable Pt referred to PMD for follow-up: No (admitted ) IPMP verified?: No Allergies/Adverse Reactions: Allergies No Known Allergies Allergy (Verified 07/05/17 22:00) Home Medications: Ambulatory Orders Levothyroxine Sodium [Synthroid] 100 mcg PO QDAC 09/21/13 Losartan Potassium 100 mg PO DAILY 09/21/13 Metoprolol Tartrate [Lopressor] 100 mg PO DAILY 09/21/13 Oxycodone HCl/Acetaminophen [Oxycodone-Acetaminophen 10-650] 10 - 650 tab PO Q6HR 09/21/13 Clonazepam 1 mg PO TID 02/12/14 Benzonatate [Tessalon Perle] 200 mg PO TID PRN 07/07/17 Clonidine HCl [Catapres] 1 tab PO Q12H 07/07/17 Duloxetine HCl [Cymbalta] 30 mg PO DAILY 07/07/17 Gabapentin [Neurontin] 600 mg PO TID 07/07/17 Levetiracetam [Keppra] 1,000 mg PO BID 07/07/17 Phenytoin Cap [Dilantin] 200 mg PO BEDTIME 07/07/17 Phenytoin Sodium Extended [Dilantin] 100 mg PO DAILY 07/07/17 Potassium Chloride [K-Dur] 20 meq PO BID 07/07/17 Quetiapine Fumarate [Seroquel] 1 tab PO BEDTIME 07/07/17 Quetiapine Fumarate [Seroquel] 1 tab PO DAILY 07/07/17 Solifenacin Succinate [Vesicare] 5 mg PO DAILY 07/07/17 Trazodone HCl [Desyrel] 50 mg PO BEDTIME 07/07/17 Amlodipine Besylate 5 mg PO BID 12/04/17 Venlafaxine HCl [Venlafaxine HCl ER] 300 mg PO DAILY 12/04/17
[2017-12-04] MEDS ORDERED: NORCURON ONE (22:45)
[2017-12-04] MEDS ORDERED: URO-JET MUCOUSMEMB STA (22:55)
[2017-12-04] MEDS ORDERED: SUBLIMAZE IVP STA (22:55)
[2017-12-04] MEDS ORDERED: SODIUM CHLORIDE 1,000 ML IV STA (22:58)
[2017-12-04] MEDS ORDERED: DIPRIVAN 100 ML VIAL 200 ML IV ONE (23:15)
--- NOTE | 2017-12-04 23:15 | CT ---
EXAM: CT head without contrast 12/04/2017. Sagittal and coronal reformatted images obtained HISTORY: Unresponsive COMPARISON: 09/21/2013 FINDINGS: There is no evidence of intracranial hemorrhage. The midline is maintained. There is no h ydrocephalus. Generalized atrophy. Chronic small vessel ischemic changes. No cerebellar tonsillar ectopia. Evaluation of the calvarium shows no fracture. The mastoid air cells are normally pneumati zed. IMPRESSION: No acute intracranial abnormality.
[2017-12-04] MEDS: DIPRIVAN 100 ML VIAL 1,000 MG in PREMIX INFUSION 100 ML VIAL 1 VIAL IV SCH (23:20)
--- NOTE | 2017-12-04 23:33 | DI ---
EXAM: Chest, single view, 12/04/2017 HISTORY: Tube placement COMPARISON: 11/30/2017 FINDINGS / IMPRESSION: The heart size appears stable. Interstitial infiltrates throughout the lower aspect of both lungs. This may represent a combination of atelectasis and/or pneumonia. There is no pleural effusion or pneumothorax. Endotracheal tube terminates at the level of the ene. This should be withdrawn approximately 2 cm . I personally discussed this finding and recommendation with Dr. Murcia, 12/04/2017, 11:27 p.m.
[2017-12-05] MEDS: LOVENOX SUBCUT SCH ×2 (02:23→09:07)
[2017-12-05] MEDS: SODIUM CHLORIDE 1,000 ML IV SCH ×3 (02:25→18:37)
[2017-12-05] MEDS: DIPRIVAN 100 ML VIAL 1,000 MG in PREMIX INFUSION 100 ML VIAL 1 VIAL IV SCH ×4 (02:37→15:52)
[2017-12-05 03:06] VITALS: BMI 31.6
[2017-12-05] MEDS: DUONEB NEB SCH ×4 (05:41→20:15)
[2017-12-05] MEDS ORDERED: DIPRIVAN 100 ML VIAL 100 ML IV ONE (06:13)
--- NOTE | 2017-12-05 09:06 | DI ---
EXAM: Single view of the chest. History: Cough. Comparison: Chest radiograph 12/04/2017 Findings: Heart size is within normal limits. Endotracheal tube tip is 2.2 cm above the ene. No change in the bibasilar lung infiltrates. No appreciable pleural fluid and no pneumothorax. No acu te osseous abnormalities. Visualized osseous structures unchanged. Impression: Bibasilar pneumonia not significantly changed compared to the prior study.
[2017-12-05] MEDS: ZOSYN 3.375 GM 3.375 GM in SODIUM CHLORIDE 50 ML IV SCH ×3 (09:07→18:16)
[2017-12-05] MEDS ORDERED: NON-FORMULARY MEDICATION (Levetiracetam [Keppra] 1,000 MG) PO SCH (11:30)
[2017-12-05] MEDS ORDERED: VENLAFAXINE HCL 300 MG PO SCH (11:30)
[2017-12-05] MEDS ORDERED: NON-FORMULARY MEDICATION (Amlodipine Besylate [Amlodipine Besylate] 5 MG) PO SCH (11:30)
[2017-12-05] MEDS ORDERED: POTASSIUM CHLORIDE 20 MEQ VIAL-ADDITIVE ONLY 20 MEQ in SODIUM CHLORIDE 100 ML IV STA (11:34)
[2017-12-05] MEDS ORDERED: POTASSIUM CHLORIDE 20 MEQ VIAL-ADDITIVE ONLY IV ONE (12:00)
[2017-12-05] MEDS ORDERED: EFFEXOR XR PO SCH (12:00)
[2017-12-05] MEDS: EFFEXOR XR PO SCH (12:47)
[2017-12-05] MEDS: SEROQUEL PO SCH ×2 (12:48→20:53)
[2017-12-05] MEDS: VESICARE PO SCH (12:48)
[2017-12-05] MEDS: SYNTHROID PO SCH (12:48)
[2017-12-05] MEDS: KEPPRA PO SCH ×2 (12:49→20:52)
[2017-12-05] MEDS: DILANTIN PO SCH ×2 (12:50→20:54)
[2017-12-05] MEDS: CYMBALTA PO SCH (12:50)
[2017-12-05] MEDS: COZAAR PO SCH (16:07)
[2017-12-05] MEDS: LOPRESSOR PO SCH (16:08)
[2017-12-05] MEDS: NORVASC PO SCH (16:08)
[2017-12-05] MEDS: NEURONTIN PO SCH ×2 (16:10→20:52)
[2017-12-05] MEDS: SODIUM CHLORIDE 0.9%-KCL 20 MEQ 1,000 ML IV SCH (20:13)
[2017-12-05] MEDS: NYSTOP POWDER TP SCH (20:52)
[2017-12-05] MEDS: DESYREL PO SCH (20:54)
[2017-12-05] MEDS ORDERED: QUETIAPINE FUMARATE PO SCH (21:00)
[2017-12-06] MEDS: NORVASC PO SCH ×2 (02:08→09:30)
[2017-12-06] MEDS: ZOSYN 3.375 GM 3.375 GM in SODIUM CHLORIDE 50 ML IV SCH ×5 (02:09→23:16)
[2017-12-06] MEDS: DUONEB NEB SCH ×4 (04:35→20:35)
[2017-12-06] MEDS: SODIUM CHLORIDE 0.9%-KCL 20 MEQ 1,000 ML IV SCH ×3 (05:05→23:16)
[2017-12-06] MEDS: SYNTHROID PO SCH (05:50)
[2017-12-06] MEDS: KEPPRA PO SCH ×2 (09:23→21:06)
[2017-12-06] MEDS: DILANTIN PO SCH ×2 (09:23→21:07)
[2017-12-06] MEDS: VESICARE PO SCH (09:23)
[2017-12-06] MEDS: NEURONTIN PO SCH ×3 (09:24→21:06)
[2017-12-06] MEDS: SEROQUEL PO SCH ×2 (09:24→21:07)
[2017-12-06] MEDS: EFFEXOR XR PO SCH (09:24)
[2017-12-06] MEDS: LOPRESSOR PO SCH ×2 (09:29→11:07)
[2017-12-06] MEDS: LOVENOX SUBCUT SCH (09:29)
[2017-12-06] MEDS: COZAAR PO SCH (09:30)
[2017-12-06] MEDS: NYSTOP POWDER TP SCH ×2 (09:31→21:11)
[2017-12-06] MEDS: CYMBALTA PO SCH (09:32)
[2017-12-06] MEDS: MYCOLOG TP SCH ×3 (11:12→21:10)
[2017-12-06] MEDS ORDERED: [UNRECOGNIZED DRUG - OTHER] PO SCH (21:00)
[2017-12-06] MEDS ORDERED: OXYCODONE HCL PO SCH (21:00)
[2017-12-06] MEDS ORDERED: ACETAMINOPHEN T PO SCH (21:00)
[2017-12-06] MEDS ORDERED: PERCOCET 5-325 ONE (21:04)
[2017-12-06] MEDS: DESYREL PO SCH (21:07)
[2017-12-07] MEDS: PERCOCET 5-325 PO PRN ×3 (03:43→17:55)
[2017-12-07] MEDS: SODIUM CHLORIDE 0.9%-KCL 20 MEQ 1,000 ML IV SCH ×3 (03:47→22:12)
[2017-12-07] MEDS: DUONEB NEB SCH ×4 (04:50→20:45)
[2017-12-07] MEDS: ZOSYN 3.375 GM 3.375 GM in SODIUM CHLORIDE 50 ML IV SCH ×3 (05:40→17:54)
[2017-12-07] MEDS: SYNTHROID PO SCH (05:40)
[2017-12-07] MEDS: NEURONTIN PO SCH ×3 (08:27→22:13)
[2017-12-07] MEDS: SEROQUEL PO SCH ×2 (08:29→22:13)
[2017-12-07] MEDS: CYMBALTA PO SCH (08:29)
[2017-12-07] MEDS: LOPRESSOR PO SCH (08:29)
[2017-12-07] MEDS: VESICARE PO SCH (08:29)
[2017-12-07] MEDS: COZAAR PO SCH (08:29)
[2017-12-07] MEDS: KEPPRA PO SCH ×2 (08:30→22:13)
[2017-12-07] MEDS: EFFEXOR XR PO SCH (08:30)
[2017-12-07] MEDS: LOVENOX SUBCUT SCH (08:32)
[2017-12-07] MEDS: NYSTOP POWDER TP SCH ×2 (08:36→22:14)
[2017-12-07] MEDS: MYCOLOG TP SCH ×3 (08:36→22:14)
[2017-12-07] MEDS: DILANTIN PO SCH ×2 (08:40→22:13)
--- NOTE | 2017-12-07 09:16 | PN ---
DATE OF SERVICE: 12/06/17 CHIEF COMPLAINT: "She overdosed." BRIEF HISTORY OF PRESENT ILLNESS: She took a large bottle of Imodium. This made her lethargic. She had to be intubated and was briefly on the vent from the evening of 12/04 and extubated early the . Mental Health saw her yesterday and thought she was suicidal but we were not sure she was medically stable. I called this morning and she was still on empiric oxygen and we have taken that away. She has not been eating very well and has not been out of bed. Blood pressure has been running somewhat low. She did have negative Aspirin and Tylenol levels. She has seen her psychiatrist Dr. Michele Romero. We were glad she had that appointment the same day and I told her she likely had a malignant nodule in the lung. PHYSICAL EXAMINATION: V/S: Temperature 98.8, pulse 94, BP 129/78, respiratory rate 17. GENERAL: Older than stated age white female in no obvious distress. INTEGUMENT: She had drying and redness circumorally around the edge of her lips. There is no rash on the oral cavity. Eyegrounds are slightly pale. No ankle edema. Mucous membranes are moist. NECK: No mass or thyromegaly. CHEST: Clear. CARDIOVASCULAR: Regular without murmur or peripheral edema. GI: Nontender. LABS/X-RAYS: White count 7 compared to an initial of 12, hemoglobin 9.9 compared to initial 12; there has been no sign of bleeding. Sodium is now normal at 138; previously 131, slight diminished liver enzymes. Urine came back positive nitrite, 3+ bacteria but specific gravity greater than 1.030. ASSESSMENT: 1. Lethargy - resolved. It was probably secondary to overdose of Imodium 2. Overdose of Imodium 3. Brief remote intubation - through the morning of the 4. Confusion - back to her baseline 5. Anxiety - acute and back to baseline 6. Depression - acute and back to baseline 7. Suicidal - possible 8. Cheilosis 9. Lower blood pressures PLAN: 1. We will continue Cozaar to help lower blood pressures 2. Try to increase activity 3. Stay off oxygen and document if there is any need for giving her Mycolog cream to go around her mouth 4. Maybe placement tomorrow MTDD
--- NOTE | 2017-12-07 13:24 | RS.PTINEVL ---
Subjective - Patient information Date of Evaluation: 12/07/17 Date of Arrival on Unit: 12/04/17 Admitted From:: Home Diagnosis: drug overdose, atelectasis, Usual Living Arrangement: With Spouse Home Environment: Mobile Home, [place] Medical History: Hypertension Medical History Comments:: anxiety, depression Surgical History: Lumbar Spine (x 2 ) Medications: see chart Subjective Information/ Patient Comments:: pt states that she doesn't want to be a burden to her family. pt tearful and emotional during treatment. - Level of function Abilities prior to this admission: pt required assist of to transfer, and is w/c bound. States she has not amb for 9 months. She states that she is able to perform bathing after assists getting onto shower chair. Current Level of Function: Dependent Current Equipment Used at Home: w/c, shower chair Pain Assessement - Location back Description: Sharp, Aching, Chronic Intensity: 8 Pain Behavior: Moaning, Crying, Facial Grimacing Pain Aggravating Factors: ADL's, Changing Position, Exercise/Activity, Sitting Pain Alleviating Factors: Medication Interventions - Objective Patient Orientation: Person, Place Current Interventions: IV's, Telemetry, Zapata Catheter Range of Motion - ROM Right Upper Extremity AROM: WFL's Left Upper Extremity AROM: WFL's Right Lower Extremity AROM: WFL's Left Lower Extremity AROM: WFL's Muscle Strength - Muscle Strength Right Upper Extremity Strength: Mild Weakness (shld flex 4-/5, elbow flex/ext 4/ 5, decreased leather belt shaper strength) Left Upper Extremity Strength: Mild Weakness (shld flex 4-/5, elbow flex/ext 4/5 , decreased leather belt shaper strength) Right Lower Extremity Strength: Mild Weakness (hip flex 3/5, knee flex/ext 3+/5 ankle DF/PF 3+/5) Left Lower Extremity Strength: Mild Weakness (hip flex 3/5, knee flex/ext 3+/5 ankle DF/PF 3+/5) Sensation - Sensation Right Upper Extremity Sensation: Intact/Normal Left Upper Extremity Sensation: Intact/Normal Right Lower Extremity Sensation: Intact/Normal Left Lower Extremity Sensation: Intact/Normal Palpation Palpation Findings: Tenderness, Muscle Guarding Comments:: lumbar paraspinals Balance - Sitting Balance and Reactions Static Sitting Balance: Fair Dynamic Sitting Balance: Poor Sitting Equilibrium Reactions: Absent Left, Absent Right Sitting Protective Reactions: Absent Left, Absent Right - Standing Balance and Reactions Static Standing Balance: Poor Dynamic Standing Balance: Zero Standing Equilibrium Reactions: Absent Left, Absent Right Standing Protective Reactions: Absent Left, Absent Right - Comments Balance Assessment Comments: pt able to maintain static sitting balance, pt unable to maintain sitting balance with reaching, challenges. pt requires max assist, unable to maintain stand without max assist. Functional Mobility - Bed Mobility Rolling R/L: Mod Assist, 1 person assist Scooting: Max Assist, 2 person assist Supine to Sit: Mod Assist, Max Assist, 2 person assist Sit to Supine: Mod Assist, Max Assist, 2 person assist - Transfers Sit to Stand: Max Assist, 2 person assist Stand Pivot Transfers: Max Assist, 2 person assist Comments:: pt requires max assist of 2 for stand pivot with difficulty advancing LE's - Safety Awareness Safety Awareness: Poor VARUN INDEX SCORE: n/a Treatment time - Time with patient Total treatment time: 26 Patient Education - Education Patient Education: Activity Modification, Education of Plan of Care Teaching Recipient: Patient Teaching Methods: Discussion (discussion regarding POC as well as safety with transfers. ) Assessment - Assessment Problem List:: Decreased level of function, Requires training/education, Decreased safety/Risk of falls, Weakness, Pain limits previous level of function , Cognitive status limits abilities Rehab Potential: Fair Further Therapy Indicated?: Yes Evaluation Complexity: HISTORY: Medium (HTN, depression, overdose, back sx), EXAM OF BODY SYSTEMS: Medium (pain, strength, balance, transfers, endurance), CLINICAL PRESENTATION: Medium (evolving), CLINICAL DECISION MAKING: Medium Short Term Goals GOAL #1: Rolling with bedrails with mod to min x 1 Goal to be met by: 12/09/17 GOAL #2: Sup to/from sit mod x 1, sit to/from stand with mod x 2 Goal to be met by: 12/09/17 GOAL #3: Stand pivot from bed to/from chair mod x 2 Goal to be met by: 12/09/17 GOAL #4: pt able to sit at side of bed for 1-2 mins with min challenges Goal to be met by: 12/09/17 Railcar Mechanic Goals GOAL #1: pt able to sit at side of bed x 5mins with no LOB with reaching Goal to be met by: 12/11/17 GOAL #2: Sup to/from sit min x 1, sit to/from stand mod x 1 Goal to be met by: 12/11/17 GOAL #3: stand pivot bed to/from chair mod x 1 Goal to be met by: 12/11/17 Plan Plan of Care: Therapeutic EX, Therapeutic Activity Frequency of Treatment: 1-2 X day, as tolerated Duration of Treatment: 5-6 days Anticipated Discharge Destination: Home Treatment Diagnosis (ICD 10 Codes): M 62.81 general weakness, M 54.4 low back pain, R 26.81 balance impaired Has the Physician been added for Co-signature?: Yes
--- NOTE | 2017-12-07 13:45 | RS.OTINEVL ---
Subjective - Patient information Date of Evaluation: 12/07/17 Date of Arrival on Unit: 12/04/17 Admitted From:: Home Usual Living Arrangement: With Spouse Living Arrangement Comments: Pt lives at home with her . Pt is in a WC and has not walked in 9 months. Pt is maximum assistance to transfer from bed to chair stand pivot. Home Environment: Mobile Home, [place] Medical History: Hypertension Medical History Comments:: anxiety, depression Surgical History: Lumbar Spine (x 2 ) Medications: see chart Subjective Information/ Patient Comments:: "I am a wreck." "I have to brush this hair." - Level of function Prior to this admission, the patient could do the following:: Partially Dependent Ambulation Abilities prior to this admission: Pt was in a WC at home. Pt was transferred by her grabbing her hands and pulling her up. Pt reports he helped her transfer to the shower chair and she could bath herself. Current Equipment Used at Home: w/c, shower chair Pain Assessment - Pain Pain Score: 9 Side: bilateral Pain Location Body Site: Back Pain Aggravating Factors: Changing Position Pain Alleviating Factors: Medication Interventions - Objective Patient Orientation: Person, Place, Situation Current Interventions: IV's, Telemetry, Zapata Catheter Observation: Pt is confused intermittently. Pt is emotional. Pt appears depressed. Pt is weak. Interventions - ROM Right Upper Extremity AROM: WFL's Left Upper Extremity AROM: WFL's - Strength Right Upper Extremity Strength: Mild Weakness Left Upper Extremity Strength: Mild Weakness - Sensation Right Upper Extremity Sensation: Intact/Normal Left Upper Extremity Sensation: Intact/Normal Balance - Sitting Balance Static Sitting Balance: Fair Dynamic Sitting Balance: Fair - Standing Balance Static Standing Balance: Poor Dynamic Standing Balance: Poor - Comments Balance Assessment Comments: Poor ADL Skills - Self Feeding Self Feeding: Independent - Grooming Grooming: Set Up Only - Bathing Bathing UE: Set Up Only Bathing LE: Min Assist - Dressing Dressing UE: Min Assist Dressing LE: Max Assist - Toilet Management Toileting Management: 2 person assist Functional Mobility - Bed Mobility Rolling R/L: Min Assist Scooting: Mod Assist Supine to Sit: Mod Assist, 2 person assist Sit to Supine: Mod Assist, 2 person assist - Transfers Sit to Stand: Max Assist Stand to Sit: Max Assist Stand Pivot Transfers: Max Assist - Ambulation Weight Bearing Status: FWB Assistive Device Used: Gait belt Assistance needed with Ambulation: Max Assist, 2 person assist - Safety Awareness Safety Awareness: Good VARUN INDEX SCORE: . Additional Treatment Performed - Time with patient Total treatment time: 20 Activities Patient Interests:: Watching Television Patient Education Patient Education: Education of diagnosis, Home Exercise Program, Education of Plan of Care Teaching Recipient: Patient Teaching Methods: Discussion Assessment Problem List:: Decreased level of function, Requires training/education, Decreased safety/Risk of falls, Weakness Rehab Potential: Good Further Therapy Indicated?: Yes Evaluation Complexity: HISTORY: Medium, EXAM OF BODY SYSTEMS: Medium, CLINICAL DECISION MAKING: Medium Short Term Goals - Goals GOAL 1: Pt to increase sit to stand to moderate assistance. Goal to be met by: 12/14/17 GOAL 2: Pt to increase BUE strength to 4/5. Goal to be met by: 12/14/17 GOAL 3: Pt to increase stand pivot transfer to minimal assistance. Goal to be met by: 12/14/17 Reconciliation Machine Operator Goals GOAL 1: Pt to increase sit to stand to minimal assistance. Goal to be met by: 12/17/17 GOAL 2: Pt to increase BUE strength to 4+/5. Goal to be met by: 12/17/17 GOAL 3: Pt to increase stand pivot transfer to CGA assistance. Goal to be met by: 12/17/17 Plan Plan of Care: Therapeutic EX, Neuromuscular Re-Educ, Therapeutic Activity, Self- Care/Home Management Frequency of Treatment: 1-2 X day, as tolerated Duration of Treatment: 2 Weeks Anticipated Discharge Destination: Mental health Treatment Diagnosis (ICD 10 Codes): M62.81 muscle weakness, Z74.0 Reduced mobility, Z74.1 Need for assistance with personal care. Has the Physician been added for Co-signature?: Yes
[2017-12-07] MEDS: DESYREL PO SCH (22:14)
[2017-12-08] MEDS: ZOSYN 3.375 GM 3.375 GM in SODIUM CHLORIDE 50 ML IV SCH ×3 (00:36→16:27)
[2017-12-08] MEDS: PERCOCET 5-325 PO PRN ×3 (00:36→15:14)
[2017-12-08] MEDS: DUONEB NEB SCH ×4 (04:30→21:00)
[2017-12-08] MEDS: SYNTHROID PO SCH (05:59)
[2017-12-08] MEDS: CYMBALTA PO SCH (08:13)
[2017-12-08] MEDS: DILANTIN PO SCH ×2 (08:13→20:58)
[2017-12-08] MEDS: NEURONTIN PO SCH ×3 (08:14→21:01)
[2017-12-08] MEDS: EFFEXOR XR PO SCH (08:14)
[2017-12-08] MEDS: COZAAR PO SCH (08:15)
[2017-12-08] MEDS: SEROQUEL PO SCH ×2 (08:15→21:00)
[2017-12-08] MEDS: VESICARE PO SCH (08:16)
[2017-12-08] MEDS: LOPRESSOR PO SCH (08:16)
[2017-12-08] MEDS: KEPPRA PO SCH ×2 (08:16→20:59)
[2017-12-08] MEDS: LOVENOX SUBCUT SCH (08:17)
[2017-12-08] MEDS: NYSTOP POWDER TP SCH ×2 (08:19→20:59)
[2017-12-08] MEDS: MYCOLOG TP SCH ×3 (08:19→20:59)
[2017-12-08] MEDS: SODIUM CHLORIDE 0.9%-KCL 20 MEQ 1,000 ML IV SCH ×2 (09:54→16:29)
[2017-12-08] MEDS: AMOXIL PO SCH (20:57)
[2017-12-08] MEDS: DESYREL PO SCH (20:58)
[2017-12-09] MEDS: PERCOCET 5-325 PO PRN ×3 (02:43→15:16)
[2017-12-09] MEDS: DUONEB NEB SCH ×3 (05:12→14:12)
[2017-12-09] MEDS: AMOXIL PO SCH ×2 (05:41→13:08)
[2017-12-09] MEDS: SYNTHROID PO SCH (05:41)
[2017-12-09] MEDS: VESICARE PO SCH (08:07)
[2017-12-09] MEDS: EFFEXOR XR PO SCH (08:08)
[2017-12-09] MEDS: KEPPRA PO SCH (08:08)
[2017-12-09] MEDS: COZAAR PO SCH (08:09)
[2017-12-09] MEDS: LOPRESSOR PO SCH (08:09)
[2017-12-09] MEDS: NEURONTIN PO SCH ×2 (08:09→15:16)
[2017-12-09] MEDS: CYMBALTA PO SCH (08:09)
[2017-12-09] MEDS: DILANTIN PO SCH (08:09)
[2017-12-09] MEDS: LOVENOX SUBCUT SCH (08:10)
[2017-12-09] MEDS: SEROQUEL PO SCH (08:10)
[2017-12-09] MEDS: NYSTOP POWDER TP SCH (09:15)
[2017-12-09] MEDS: MYCOLOG TP SCH ×2 (09:15→15:17)
[2017-12-09] MEDS: SODIUM CHLORIDE 0.9%-KCL 20 MEQ 1,000 ML IV SCH (10:40)
[2017-12-09 15:03] VITALS: BP 140/92; TEMP 97.7
--- NOTE | 2017-12-09 15:45 | DI ---
Exam: Single view of the chest. Comparison: 12/05/2017. Reason for exam: Drug ingestion unresponsive. FINDINGS: No pneumothorax, pleural effusion, or focal consolidation. The cardiac silhouette is not enlarged. The imaged osseous structures appear grossly unremarkable without acute fracture. Operati ve changes are seen after anterior cervical discectomy and fusion. Partially imaged operative change s are seen in the lumbar spine. Impression: No acute cardiopulmonary process.
--- NOTE | 2017-12-14 06:52 | PN ---
DATE OF SERVICE: 12/07/17 CHIEF COMPLAINT: "She overdosed." BRIEF HISTORY OF PRESENT ILLNESS: She took a large bottle of Imodium. This made her lethargic. She had to be intubated and was briefly on the vent from the evening of 12/04 and extubated early the . Mental Health saw her yesterday and thought she was suicidal but we were not sure she was medically stable. I called this morning and she was still on empiric oxygen and we have taken that away. She has not been eating very well and has not been out of bed. Blood pressure has been running somewhat low. She did have negative Aspirin and Tylenol levels. She has seen her psychiatrist Dr. Michele Romero. We were glad she had that appointment the same day and I told her she likely had a malignant nodule in the lung. INTERVAL CHANGES: She has continued to become more alert. She is eating better and having stools. She is drinking and voiding. She says she is not a suicidal risk. Her , who is here tonight, agrees. He wants her to seek out rehab as her gait is markedly diminished at home and he would like to see if it could improve a little bit. I made a phone call to Dr. Derrick Becerril's office and they are working on moving up her appointment. PHYSICAL EXAMINATION: V/S: Temperature 96, pulse 85, BP 127/80, pulse 18. GENERAL: Older than stated age, no obvious distress. INTEGUMENT: Less redness around her mouth and the corners of her mouth. NECK: No mass or thyroid. CHEST: Diminished, clear. CARDIOVASCULAR: Regular without murmur or peripheral edema. GI: Nontender. LABS/X-RAYS: Urine is showing E. coli, sensitive to everything. Blood cultures showing a gram positive out of two. ASSESSMENT: 1. Initial lethargy - probably secondary to overdose of Imodium - resolved. 2. Overdose of Imodium. 3. Brief remote intubation - through the morning of the . 4. Confusion - back to her baseline. 5. Anxiety - acute and back to baseline. 6. Depression - acute and back to baseline. 7. Suicidal - now refuted. 8. Chelosis. 9. Labile blood pressure - overall improving. 10. Positive blood cultures - gram positive. 11. Bacturia - E. coli possibly UTI. 12. Abnormal chest x-ray - possible pneumonia though I suspect this is more atelectasis related to her recent intubation. PLAN: 1. Medications - reviewed and continue same. 2. Laboratories reviewed. 3. Imaging - will ask for a chest x-ray before discharge. 4. Diet - encouraged. 5. Activity - PT and potential transfer to [facility] if accepted. 6. Discharge planning - note above and she expects eventually home. Also will need to make it to cardiothoracic surgery and/or pulmonary to help deal with the issues of her abnormal recent CT. 7. Code status remains full. MTDD
--- NOTE | 2017-12-14 09:16 | PN ---
DATE OF SERVICE: 12/08/17 CHIEF COMPLAINT: "She took a large dose of Imodium." BRIEF HISTORY OF PRESENT ILLNESS: She took a large bottle of Imodium. This made her lethargic. She had to be intubated and was briefly on the vent from the evening of 12/04 and extubated early the . Mental Health saw her yesterday and thought she was suicidal but we were not sure she was medically stable. I called this morning and she was still on empiric oxygen and we have taken that away. She has not been eating very well and has not been out of bed. Blood pressure has been running somewhat low. She did have negative Aspirin and Tylenol levels. She has seen her psychiatrist Dr. Michele Romero. We were glad she had that appointment the same day and I told her she likely had a malignant nodule in the lung. INTERVAL CHANGES: She continues to feel stronger. She is eating better and had a bowel movement today that was without diarrhea. She sat up in the chair but is doing very little walking. She is quite agreeable to transfer to [facility] as soon as she can be accepted. A special screening has to be done due to her psychiatric history. Mental Health came back today and said in their opinion she is now nonsuicidal. PHYSICAL EXAMINATION: V/S: Temperature 97.7, pulse 83, BP 136/85, respirations 20. There is a pattern of this normalacy. Her blood culture is now growing one Staph Hominis and one growing Staph Epidermis (probably a contaminant). Her E. coli in the urine is sensitive to everything. ASSESSMENT: 1. Lethargy - after her initial dose of Imodium it resolved. 2. Confusion - same and back to baseline. 3. Remote brief intubation the through the (primarily to protect airways). 4. Overdose of Imodium. 5. Anxiety - chronic (possibly an acute component but back to baseline). 6. Depression - acute with probable chronic component and back to baseline. 7. Initial concern of suicide ideation - now resolved. 8. Cheilosis - improving with empiric topical antifungal. 9. Labile blood pressure with some tendencies toward low - resolved. 10. Positive blood culture - gram positive one Staph Hominis and one Staph Epidermidis suggestive for contaminants. 11. Bacteruria and probably UTI - E. coli sensitive to everything. PLAN: 1. Medications reviewed - we are stopping Azactam and Vancomycin and transitioning over to simply Amoxicillin 500 mg t.i.d. 2. Labs - repeat in the morning. 3. Chest x-ray to repeat in the morning. 4. Diet - same and encouraged. 5. Full code status. 6. Discharge planning - eventually home but it is anticipated that she will complete her screening her transfer to [facility] tomorrow. 7. Activity - encouraged what she can accomplish here. [facility]
== END 2017-12-09 17:15 | DRG 918 ==
LOC: ED 21:57 → SCU 12-05 00:28
PROVIDERS: ADMIT Family Medicine; ATTEND Family Medicine
PROC: 0BH17EZ Insertion of Endotracheal Airway into Trachea, Via Natural or Artificial Opening (ICD-10-PCS; principal; 2017-12-05)
DX: T50.902A Poisoning by unspecified drugs, medicaments and biological substances, intentional self-harm, initial encounter (principal); J98.11 Atelectasis; F33.2 Major depressive disorder, recurrent severe without psychotic features; R78.81 Bacteremia; N39.0 Urinary tract infection, site not specified; E87.1 Hypo-osmolality and hyponatremia; R40.4 Transient alteration of awareness; R53.83 Other fatigue; R41.0 Disorientation, unspecified; T47.6X2A Poisoning by antidiarrheal drugs, intentional self-harm, initial encounter; Y92.018 Other place in single-family (private) house as the place of occurrence of the external cause; K13.0 Diseases of lips; R03.1 Nonspecific low blood-pressure reading; B95.7 Other staphylococcus as the cause of diseases classified elsewhere; B96.20 Unspecified Escherichia coli [E. coli] as the cause of diseases classified elsewhere; R91.1 Solitary pulmonary nodule; E03.9 Hypothyroidism, unspecified; E66.9 Obesity, unspecified; Z98.84 Bariatric surgery status; M81.0 Age-related osteoporosis without current pathological fracture; I10 Essential (primary) hypertension; Z86.718 Personal history of other venous thrombosis and embolism; F51.04 Psychophysiologic insomnia; M47.9 Spondylosis, unspecified; M50.80 Other cervical disc disorders, unspecified cervical region; M19.90 Unspecified osteoarthritis, unspecified site; Z85.038 Personal history of other malignant neoplasm of large intestine; K21.9 Gastro-esophageal reflux disease without esophagitis; G62.9 Polyneuropathy, unspecified; G40.909 Epilepsy, unspecified, not intractable, without status epilepticus; R26.9 Unspecified abnormalities of gait and mobility
CPT/HCPCS: 31500; 36415; 80053; 80306; 80307; 81001; 82607; 82746; 82803; 83605; 84145; 85008; 85025; 87040; 87070; 87081; 87086; 87186; 93005; 93010; 94003; 94640; 96361; 96365; 96366; 96375; 97802; 99285

== ENCOUNTER 2018-09-18 09:48 | Outpatient (CLI) | END 2018-09-18 10:17 | disposition short-term general hospital (02) | LOC: AMBL 09:48 | PROVIDERS: ATTEND Emergency Medicine | DX: R41.82 Altered mental status, unspecified (principal); M79.602 Pain in left arm; M54.9 Dorsalgia, unspecified; G89.29 Other chronic pain; R40.2421 Glasgow coma scale score 9-12, in the field [EMT or ambulance] ==

== ENCOUNTER 2018-09-25 23:23 | Outpatient (CLI) | END 2018-09-25 23:42 | disposition short-term general hospital (02) | LOC: AMBL 23:23 | PROVIDERS: ATTEND Internal Medicine Geriatric Medicine | DX: R60.0 Localized edema (principal); M79.605 Pain in left leg; R21 Rash and other nonspecific skin eruption ==

== ENCOUNTER 2018-10-06 12:01 | Outpatient (CLI) | END 2018-10-06 12:23 | disposition short-term general hospital (02) | LOC: AMBL 12:01 | PROVIDERS: ATTEND Emergency Medicine | DX: S79.911A Unspecified injury of right hip, initial encounter (principal); W18.11XA Fall from or off toilet without subsequent striking against object, initial encounter; Y92.121 Bathroom in nursing home as the place of occurrence of the external cause ==

== ENCOUNTER 2018-12-22 11:40 | Outpatient (CLI) | END 2018-12-22 11:41 | disposition home or self-care (01) | LOC: NONPT 11:40 | PROVIDERS: ATTEND Family Medicine | DX: E03.9 Hypothyroidism, unspecified (principal); E55.9 Vitamin D deficiency, unspecified; F44.5 Conversion disorder with seizures or convulsions; J18.9 Pneumonia, unspecified organism; R65.20 Severe sepsis without septic shock; I10 Essential (primary) hypertension | CPT/HCPCS: 80053; 82306; 83970; 84100; 84134; 84443; 85025 ==

== ENCOUNTER 2018-12-30 14:12 | Outpatient (CLI) | END 2018-12-30 14:13 | disposition home or self-care (01) | LOC: NONPT 14:12 | PROVIDERS: ATTEND Family Medicine | DX: R65.20 Severe sepsis without septic shock (principal); A41.9 Sepsis, unspecified organism; I10 Essential (primary) hypertension | CPT/HCPCS: 80048 ==

== ENCOUNTER 2019-03-17 14:16 | Outpatient (CLI) | END 2019-03-17 14:39 | disposition short-term general hospital (02) | LOC: AMBL 14:16 | PROVIDERS: ATTEND Emergency Medicine | DX: R41.82 Altered mental status, unspecified (principal); R00.0 Tachycardia, unspecified; L89.303 Pressure ulcer of unspecified buttock, stage 3; L89.529 Pressure ulcer of left ankle, unspecified stage; L89.519 Pressure ulcer of right ankle, unspecified stage; L89.629 Pressure ulcer of left heel, unspecified stage; L89.619 Pressure ulcer of right heel, unspecified stage ==